=== PATIENT | female | born 1965 | race Caucasian/White ===

== ENCOUNTER 2019-05-21 14:10 | Emergency (ER) | payer MEDICAID ==
[~2019-05-21] VITALS: Ht 170.2 cm; Wt 77.3 kg
[2019-05-21 14:15] VITALS: BP 133/95
[2019-05-21] MEDS ORDERED: LORazepam 1MG TABLET PO ONE (15:00)
[2019-05-21] MEDS ORDERED: LORazepam 1MG TABLET ONE (15:04)
== END 2019-05-21 15:13 | disposition home or self-care (01) ==
LOC: ED 15:07
DX: F43.9 Reaction to severe stress, unspecified (principal); R51 Headache; Z76.0 Encounter for issue of repeat prescription; F41.1 Generalized anxiety disorder; I10 Essential (primary) hypertension
CPT/HCPCS: 99283